=== PATIENT | female | born 1970 | race Caucasian/White ===

== ENCOUNTER 2019-01-04 07:34 | Outpatient (CLI) | payer OTHER | END 2019-01-04 07:49 | disposition home or self-care (01) | LOC: MRI 07:34 | DX: R56.1 Post traumatic seizures (principal) | CPT/HCPCS: 70551 ==

== ENCOUNTER 2019-01-04 08:55 | Outpatient (CLI) | payer OTHER | END 2019-01-04 08:58 | disposition home or self-care (01) | LOC: NUCLEAR 08:55 | DX: I63.9 Cerebral infarction, unspecified (principal) ==

== ENCOUNTER 2021-03-06 07:42 | Outpatient (CLI) | payer OTHER | END 2021-03-06 07:58 | disposition home or self-care (01) | LOC: SONOGRAMA 07:42 | DX: L04.0 Acute lymphadenitis of face, head and neck (principal) ==

== ENCOUNTER 2022-11-20 07:41 | Outpatient (CLI) | payer OTHER | END 2022-11-20 07:46 | disposition home or self-care (01) | LOC: TOM 07:41 | PROVIDERS: ATTEND Internal Medicine | DX: R19.5 Other fecal abnormalities (principal); G70.00 Myasthenia gravis without (acute) exacerbation; K56.50 Intestinal adhesions [bands], unspecified as to partial versus complete obstruction; Z80.0 Family history of malignant neoplasm of digestive organs; K55.8 Other vascular disorders of intestine | CPT/HCPCS: 74175; 74261; Q9965 ==